=== PATIENT | female | born 1995 | race Two or more races ===

== ENCOUNTER → 2022-09-08 | Emergency (ER) | payer OTHER ==
[~2022-09-08] VITALS: Ht 142.2 cm; Wt 68.5 kg
[~2022-09-08] MED LIST: ATORVASTATIN CA10 MG PO; DUI500 PO
== END | disposition home or self-care (01) ==
LOC: ER 18:17
DX: S90.862A Insect bite (nonvenomous), left foot, initial encounter (principal); W57.XXXA Bitten or stung by nonvenomous insect and other nonvenomous arthropods, initial encounter; Y93.89 Activity, other specified; Y92.832 Beach as the place of occurrence of the external cause; Z91.030 Bee allergy status